=== PATIENT | female | born 1955 | race Caucasian/White ===

== ENCOUNTER → 2022-06-13 09:02 | Outpatient (BNVA) | payer MEDICARE, SELFPAY | PROVIDERS: Family Provider Family Medicine; PCP Family Medicine; Visit Provider Family Medicine | DX: R53.83 Other fatigue (principal); E11.9 Type 2 diabetes mellitus without complications; E78.00 Pure hypercholesterolemia, unspecified; E11.65 Type 2 diabetes mellitus with hyperglycemia | CPT/HCPCS: 80053; 80061; 82607; 83036; 84443; 85025 ==

== ENCOUNTER 2024-01-05 09:01 | Emergency (ER) | payer MEDICARE, SELFPAY ==
[2024-01-05 09:09] VITALS: BP 167/85; PULSE 74; RESP 16; TEMP 36.7; O2SAT 97
--- NOTE | 2024-01-05 09:21 | XR_ITS ---
WS: [id number] RIGHT FOOT: 3 VIEW(S) TECHNIQUE: AP, oblique and lateral. HISTORY: Trauma COMPARISON: None available. No acute fracture or dislocation. Narrowing of the tarsal metatarsal articulation. There is no overlying edema or soft tissue swelling. These changes are probably all related to osteoarthritis. No soft tissue abnormality or bone destruction. IMPRESSION: Diffuse osteopenia. No acute fracture identified. Advanced arthropathy in the midfoot.
--- NOTE | 2024-01-05 09:21 | XRR_ITS ---
PROCEDURE INFORMATION: Exam: XR Left Knee Exam date and time: 01/05/2024 9:34 AM Age: 68 years old Clinical indication: Injury or trauma; Fall; Blunt trauma; Knee; Left TECHNIQUE: Imaging protocol: Radiologic exam of the left knee. Views: 3 views. COMPARISON: No relevant prior studies available. FINDINGS: Bones/joints: Normal. Soft tissues: Normal. XR/XR knee LT 3V* [id number] IMPRESSION: No acute findings.
--- NOTE | 2024-01-05 09:21 | XRR_ITS ---
PROCEDURE INFORMATION: Exam: XR Right Ankle Exam date and time: 01/05/2024 9:33 AM Age: 68 years old Clinical indication: Injury or trauma; Fall; Blunt trauma; Ankle; Right TECHNIQUE: Imaging protocol: Radiologic exam of the right ankle. Views: 3 or more views. COMPARISON: CR XR foot RT min 3V* [id number] 01/05/2024 9:31 AM FINDINGS: Bones/joints: Normal. Soft tissues: Normal. XR/XR ankle RT min 3V* [id number] IMPRESSION: No acute findings.
--- NOTE | 2024-01-05 09:25 | XRR_ITS ---
PROCEDURE INFORMATION: Exam: XR Left Humerus Exam date and time: 01/05/2024 9:39 AM Age: 68 years old Clinical indication: Injury or trauma; Fall; Blunt trauma (contusions or hematomas); Arm, upper; left TECHNIQUE: Imaging protocol: Radiologic exam of the left humerus. Views: 2 or more views. COMPARISON: CR XR shoulder LT min 2V* [id number] 01/05/2024 9:37 AM FINDINGS: Bones/joints: Mildly displaced fracture of the humeral neck. Soft tissues: Normal. XR/[place] [id number] IMPRESSION: Mildly displaced fracture of the left humeral neck.
--- NOTE | 2024-01-05 09:25 | XRR_ITS ---
PROCEDURE INFORMATION: Exam: XR Right Humerus Exam date and time: 01/05/2024 9:43 AM Age: 68 years old Clinical indication: Injury or trauma; Fall; Blunt trauma (contusions or hematomas); Arm, upper; Right TECHNIQUE: Imaging protocol: Radiologic exam of the right humerus. Views: 2 or more views. COMPARISON: CR XR shoulder RT min 2V* [id number] 01/05/2024 9:41 AM FINDINGS: Bones/joints: Displaced fracture of the right humeral neck. Soft tissues: Normal. XR/[place] [id number] IMPRESSION: Displaced fracture of the right humeral neck.
--- NOTE | 2024-01-05 09:25 | XRR_ITS ---
PROCEDURE INFORMATION: Exam: XR Left Shoulder Exam date and time: 01/05/2024 9:37 AM Age: 68 years old Clinical indication: Injury or trauma; Fall; Blunt trauma (contusions or hematomas); Shoulder; Left TECHNIQUE: Imaging protocol: Radiologic exam of the left shoulder. Views: 2 or more views. COMPARISON: No relevant prior studies available. FINDINGS: Bones/joints: Mildly displaced fracture of the left humeral neck. Soft tissues: Normal. XR/XR shoulder LT min 2V* [id number] IMPRESSION: Mildly displaced fracture of the left humeral neck.
--- NOTE | 2024-01-05 09:25 | XRR_ITS ---
PROCEDURE INFORMATION: Exam: XR Right Shoulder Exam date and time: 01/05/2024 9:41 AM Age: 68 years old Clinical indication: Injury or trauma; Fall; Blunt trauma (contusions or hematomas); Shoulder; Right TECHNIQUE: Imaging protocol: Radiologic exam of the right shoulder. Views: 2 or more views. COMPARISON: No relevant prior studies available. FINDINGS: Bones/joints: Displaced fracture of the right humeral neck. Soft tissues: Normal. XR/XR shoulder RT min 2V* [id number] IMPRESSION: Displaced fracture of the right humeral neck.
--- NOTE | 2024-01-05 09:26 | ED_ITS ---
HPI - Extremity Problem General: Chief complaint: Extremity Injury, Upper Stated complaint: Fall Time Seen by Provider: 01/05/24 09:02 Source: patient History of Present Illness: 68-year-old female had a ground-level me chanical fall at home. States she la nded on her left side and also hit her right side she complaining of bilateral proximal humerus pain bilateral shoulder pain left knee pain right foot and ankle pain. No neck pain she did not strike her head no loss of consciousness she is not on any anticoagulants. This happened just prior to arrival. Patient is on Farxiga for diabetes. Denies chest pain or shortness of breath. MD Complaint: extremity pain Associated symptoms: Deny chest pain, fever(s) or rash Review of Systems 2 Const: Denies: fever(s) or chills Card: Denies: chest pain Resp: Denies: dyspnea GI: Denies: abdominal pain : Denies: dysuria, urinary frequency or urinary urgency Musc: Denies: neck pain or back pain Skin/Breast: Denies: rash PFSH ED PFSH: Social History Smoking and tobacco/nicotine status: never used tobacco/nicotine Alcohol intake: never Physical Exam Const: COMMON NORMALS: no acute distress GENERAL APPEARANCE: cooperative and comfortable ORIENTATION/CONSCIOUSNESS: Yes awake, Yes oriented to person, Yes oriented to place and Yes oriented to time HENMT: COMMON NORMALS: normocephalic, atraumatic and hearing grossly normal bilaterally HEAD & SCALP: normocephalic and atraumatic Resp: COMMON NORMALS: normal respiratory effort, No retractions, No use of accessory muscles and clear to auscultation bilaterally AUSCULTATION: clear to auscultation bilaterally Cardio: COMMON NORMALS: regular rate, regular rhythm and No murmurs present (Cardio) RATE: regular rate RHYTHM: regular rhythm GI: COMMON NORMALS: Soft to palpation and No hepatosplenomegaly present AUSCULTATION: Yes normoactive bowel sounds PALPATION: Yes Soft to palpation, No Tenderness to palpation present (GI), No Guarding due to palpation present (GI) and Yes No hepatosplenomegaly present Extremity: COMMON NORMALS: normal to inspection, capillary refill normal, no clubbing, cyanosis or edema, no calf tenderness and no pedal edema Neuro: SENSORIUM/ORIENTATION: Yes oriented to person, Yes oriented to place and Yes oriented to time Skin: COMMON NORMALS: no rashes or lesions noted GENERAL SKIN EXAM: no rashes or lesions noted Course Vital Signs: Vital signs: Vital Signs Temperature 98.0 F 01/05/24 09:09 Pulse Rate 72 01/05/24 12:06 Respiratory Rate 16 01/05/24 11:10 Blood Pressure 146/60 01/05/24 12:06 Pulse Oximetry 93 01/05/24 12:06 Oxygen Delivery Me thod Room Air 01/05/24 12:06 MDM - Extremity (Nontraumatic) Medical Decision Making Bilateral proximal humerus fractures. This appreciated difficult for the patient because she lives by herself. Initially she did not think she had any family she could live with we looked at the possibility of senior care with case management. Her daughter arrived and said that she would be able to care for her. Will discharge patient home in a shoulder immobilizer with pain medications. Discussed with patient and family. We also reviewed the findings with Dr. Sherman who is on-call for Ortho. She concurs with plan, she recommends follow-up in the Ortho clinic. Medical Records I reviewed the patient's medical records. Lab Data I reviewed the patient's lab results. Radiology Impressions Ankle X-Ray 01/05/24 09:21 IMPRESSION: No acute findings. Knee X-Ray 01/05/24 09:21 IMPRESSION: No acute findings. Humerus X-Ray 01/05/24 09:25 IMPRESSION: Displaced fracture of the right humeral neck. Shoulder X-Ray 01/05/24 09:25 IMPRESSION: Displaced fracture of the right humeral neck. All radiology interpretation(s) finalized by discharge Discharge Plan Discharge Patient Disposition: Home Clinical Impression: Fracture of neck of right humerus, Fracture of neck of left humerus Condition: Stable Prescriptions: New hydrocodone-acetaminophen 5-325 mg tablet 1 tab PO Q6H PRN (Reason: pain) Qty: 25 0RF promethazine 25 mg tablet 25 mg PO Q6H PRN (Reason: nausea and vomiting) Qty: 20 0RF No Action Farxiga 10 mg tablet 10 mg PO QAM Discharge Orders: Discharge ED (Routine); Ordered 01/05/24 Ordered By: Rich Crevantes Referrals: Radha,Mami L, DO [Primary Care Provider] - Discharge Diet: Usual diet Discharge Activity: Limit activity as instructed Patient Instructions: Opioid Safety, Pain Management Activity Restrictions/Additional Instructions: Thank you for choosing [facility] for your healthcare needs today. Please realize this is an emergency room and that we are providing you with a medical screening exam and this may not be complete and all inclusive of all the testing and or work up that you may need to determine your ailment or severity of your illness. It is very important that you follow up as instructed or that you return to the Emergency Department should you have concerns or if your condition changes or worsens in any way. You were seen today after a fall at home. You were found to have bilateral proximal humerus fractures. These are nonsurgical and are treated conservatively generally. You are will be discharged home with your daughter. You will not be able to use either arm for the next several weeks. Case management make arrangements for you to follow-up with orthopedics. You can use pain nausea medicines prescribed as needed. Coding Level of Care Code ED Cutting Machine Operator Helper for Berna Bravo
[2024-01-05 10:49] VITALS: PULSE 67; O2SAT 97
[2024-01-05] MEDS: ondansetron 2 mg/ML SDV 2 mL 4 MG IVP (11:08)
[2024-01-05 11:10] VITALS: RESP 16
[2024-01-05] MEDS: morphine 4 mg/mL SDV 1 mL 2 MG IVP (11:10)
--- NOTE | 2024-01-05 11:13 | PC.SOCIAL ---
Referral Patient reports that she lives at home alone. She sees Dr. Garcia for primary care, and fills her medications at [facility]. She has no services or DME at home, and reports being completely independent prior to this. She reports tripping over a blanket at home, and falling into a doorframe before falling to a concrete floor. She states that her daughter lives in [place], and has her own health issues, so unsure if she would be able to help at home. She states that she cannot afford to private pay at a facility and questions if she would qualify for medicaid. Explained that if she qualifies, the SNF would start the application process with her, and then medicaid would retro pay. She is willing for to check with some local facilities that may help her, as well as [facility]. [facility]. Spoke with Maria Luisa, financial administrator at [facility]. She states that give patient's income, she would likely qualify for medicaid, and she is happy to review referral. However, patient would have to be willing to give up her check if approved and accepted. Referral also faxed to [facility] and [facility] to see if they are able to assist patient.
[2024-01-05 11:28] VITALS: BP 130/59; PULSE 67; O2SAT 95
[2024-01-05] MEDS: metoclopramide 5 mg/mL SDV 2 mL 10 MG IVP (11:33)
[2024-01-05 12:06] VITALS: BP 146/60; PULSE 72; O2SAT 93
[2024-01-05 13:04] VITALS: BP 146/60; PULSE 72; RESP 16; TEMP 36.7; O2SAT 93
--- NOTE | 2024-01-08 11:47 | DCPLANNER ---
Called [facility] and spoke to Paula, she will call the patient with an appointment date and time.
== END 2024-01-05 13:05 | disposition home or self-care (01) ==
PROVIDERS: Emergency Provider Family Medicine; PCP Family Medicine
DX: S42.211A Unspecified displaced fracture of surgical neck of right humerus, initial encounter for closed fracture (principal); S42.212A Unspecified displaced fracture of surgical neck of left humerus, initial encounter for closed fracture; W19.XXXA Unspecified fall, initial encounter
CPT/HCPCS: 73030; 73060; 73562; 73610; 73630; 96374; 96375; 99284; J2270; J2405; J2765

== ENCOUNTER → 2024-01-12 14:39 | Outpatient (BNVA) | payer MEDICARE, SELFPAY | PROVIDERS: PCP Family Medicine; Referring Provider Family Medicine; Visit Provider Orthopaedic Surgery | DX: S42.212A Unspecified displaced fracture of surgical neck of left humerus, initial encounter for closed fracture; M79.671 Pain in right foot; W19.XXXA Unspecified fall, initial encounter | CPT/HCPCS: 81001; 87086; 87106; 99204 ==

== ENCOUNTER 2024-01-14 15:48 | Outpatient (CLI) | payer MEDICARE, SELFPAY ==
--- NOTE | 2024-01-14 16:00 | CTR_ITS ---
PROCEDURE INFORMATION: Exam: CT Right Lower Extremity Without Contrast, Foot Exam date and time: 01/14/2024 4:16 PM Age: 68 years old Clinical indication: Injury or trauma; Fall; Blunt trauma; Injury details: Fell last Judith, bruising and pain on right foot; Additional info: T14.8xxa - other injury of unspecified body region, initi. . . TECHNIQUE: Imaging protocol: CT of the right lower extremity without contrast was performed. Exam focused on the foot. Radiation optimization: All CT scans at this facility use at least one of these dose optimization techniques: automated exposure control; mA and/or kV adjustment per patient size (includes targeted exams where dose is matched to clinical indication); or iterative reconstruction. COMPARISON: CR XR foot RT min 3V* [id number] 01/05/2024 9:31 AM RADIATION DOSE METRICS: Total DLP (mGy-cm): 136.02 FINDINGS: Bones/joints: Acute minimally displaced intra-articular fracture of the 1st metatarsal base predominantly involving the plantar and medial aspect of the base with mild comminution. Subtle avulsive injury of the dorsum of the medial cuneiform (image 28 of series 7). Acute avulsive injury of the lateral aspect of the medial cuneiform as well with subcentimeter cortical fragments (image 29 of series 7 and image 52 of series 6). Acute nondisplaced intra-articular fracture of the base of the 2nd metatarsal involving its plantar aspect. Tarsometatarsal alignment is maintained. Acute minimally displaced avulsion fractures of the plantar aspect of the 3rd and 4th metatarsal bases (image 55 of series 6). The middle cuneiform, lateral cuneiform and cuboid are grossly intact. Hindfoot is intact. Plantar calcaneal spur and Achilles enthesophyte noted. Soft tissues: Soft tissue edema without evidence of fluid collection or hematoma. Tendons are grossly intact. CT/CT foot RT wo con* [id number] IMPRESSION: 1. Acute minimally displaced fractures of the bases of the 1st through 4th metatarsals. 2. Acute avulsive injuries of the medial cuneiform.
== END 2024-01-14 15:49 | disposition home or self-care (01) ==
LOC: RAD 15:49
PROVIDERS: PCP Family Medicine; Visit Provider Orthopaedic Surgery
DX: S92.311A Displaced fracture of first metatarsal bone, right foot, initial encounter for closed fracture (principal); S92.321A Displaced fracture of second metatarsal bone, right foot, initial encounter for closed fracture; S92.331A Displaced fracture of third metatarsal bone, right foot, initial encounter for closed fracture; S92.341A Displaced fracture of fourth metatarsal bone, right foot, initial encounter for closed fracture; W19.XXXA Unspecified fall, initial encounter; M77.31 Calcaneal spur, right foot
CPT/HCPCS: 73700

== ENCOUNTER → 2024-01-26 15:16 | Outpatient (BNVA) | payer MEDICARE, SELFPAY | PROVIDERS: PCP Family Medicine; Visit Provider Orthopaedic Surgery | DX: S92.314D Nondisplaced fracture of first metatarsal bone, right foot, subsequent encounter for fracture with routine healing (principal); X58.XXXD Exposure to other specified factors, subsequent encounter | CPT/HCPCS: 99213 ==

== ENCOUNTER → 2024-02-18 12:51 | Outpatient (BNVA) | payer MEDICARE, SELFPAY | PROVIDERS: PCP Family Medicine; Visit Provider Orthopaedic Surgery | DX: S92.314D Nondisplaced fracture of first metatarsal bone, right foot, subsequent encounter for fracture with routine healing (principal); W19.XXXD Unspecified fall, subsequent encounter; M79.671 Pain in right foot; M25.511 Pain in right shoulder; M25.512 Pain in left shoulder | CPT/HCPCS: 73030; 73630; 99213 ==

== ENCOUNTER → 2024-03-31 12:47 | Outpatient (BNVA) | payer MEDICARE, SELFPAY | PROVIDERS: PCP Family Medicine; Visit Provider Orthopaedic Surgery | DX: S92.314D Nondisplaced fracture of first metatarsal bone, right foot, subsequent encounter for fracture with routine healing (principal); S42.92XA Fracture of left shoulder girdle, part unspecified, initial encounter for closed fracture; X58.XXXA Exposure to other specified factors, initial encounter; X58.XXXD Exposure to other specified factors, subsequent encounter; S42.91XA Fracture of right shoulder girdle, part unspecified, initial encounter for closed fracture | CPT/HCPCS: 73030; 73630; 99213 ==